=== PATIENT | female | born 1960 | race Caucasian/White ===

== ENCOUNTER → 2018-02-17 10:04 | Outpatient (CLI) | payer MEDICARE ==
[~2018-02-17 10:04] MED LIST: AMITRIPTYLINE H50 MG PO; HYDROCODONE-APA1 TAB PO; LIPITOR40 MG PO; NEURONTIN 300300 MG PO; NEXIUM40 MG PO; ZANAFLEX2 M1 PO
== END | disposition home or self-care (01) ==
LOC: D.CT 10:04
DX: C34.31 Malignant neoplasm of lower lobe, right bronchus or lung (principal)

== ENCOUNTER 2018-08-16 08:00 | Outpatient (CLI) | payer MEDICARE | END 2018-08-16 16:47 | disposition home or self-care (01) | LOC: D.MAMMO 08:00 | PROVIDERS: ATTEND Family Medicine | DX: Z12.31 Encounter for screening mammogram for malignant neoplasm of breast (principal) ==